=== PATIENT | female | born 1985 | race Hispanic/Latino ===

== ENCOUNTER 2018-08-31 01:20 | Observation (INO) | payer SELFPAY ==
[2018-08-31 01:42] LABS: #Basophils 0.1 thou/uL (0.0-0.2); #Eosinphils 0.2 thou/uL (0.0-0.7); #Lymphocytes 2.9 thou/uL (1.20-3.40); #Monocytes 0.4 thou/uL (0.11-0.59); #Neutrophils 3.6 thou/uL (1.40-6.50); %Basophils 0.9 % (0.0-1.0); %Eosinophils 2.9 % (0.0-10.0); %Lymphocytes 40.6 % (21.0-51.0); %Monocytes 5.3 % (0.0-10.0); %Neutrophils 50.3 % (42.0-75.0); Hemoglobin 13.4 g/dL (12.0-16.0); Mean Corpuscular HGB CONC 32.7 g/dL (32.0-36.0); Mean Corpuscular Hemoglobin 29.2 pg (27.0-31.0); Mean Corpuscular Volume 89.4 fL (78.0-98.0); Mean Platelet Volume 6.9 fL (7.4-10.4); Platelet Count 341 thou/uL (130-400); RBC Distribution Width 12.2 % (11.5-14.5); Red Blood Cell (RBC) Count 4.58 mill/uL (4.20-5.40); White Blood Cell (WBC) Count 7.2 thou/uL (4.8-10.8)
[2018-08-31 01:49] LABS: PTT 29.7 SEC (22.9-36.1); Prothrombin Time 13.1 SEC (12.0-14.7)
[2018-08-31 02:03] LABS: ALT (SGPT) 20 U/L (8-55); AST (SGOT) 20 U/L (5-34); Albumin 4.1 g/dL (3.5-5.0); Alkaline Phosphatase 106 U/L (40-150); Anion Gap 12 mmol/L (10-20); BUN (Urea Nitrogen) 17 mg/dL (7.0-18.7); Bilirubin, Total 0.2 mg/dL (0.2-1.2); CK (CPK) 154 U/L (29-168); Calc. Creatinine Clearance 0 mL/min (70-130); Calcium 9.6 mg/dL (7.8-10.44); Carbon Dioxide 26 mmol/L (22-29); Chloride 106 mmol/L (98-107); Estimated GFR-MDRD Greater than 90; Globulin 3.4 g/dL (2.4-3.5); Glucose 105 mg/dL (70-105); Potassium 3.2 mmol/L (3.5-5.1); Protein, Total 7.5 g/dL (6.0-8.3); Sodium 141 mmol/L (136-145)
[2018-08-31] MEDS ORDERED: Potassium Chloride 20 MEQ TAB ONE (02:25)
[2018-08-31] MEDS ORDERED: Aspirin Chewable 81 MG TAB ONE (02:25)
[2018-08-31] MEDS ORDERED: Ondansetron ODT 4 MG TAB PO PRN (03:25)
[2018-08-31] MEDS ORDERED: Acetaminophen 325 MG TAB PO PRN (03:25)
[2018-08-31] MEDS ORDERED: Ondansetron PF 4 MG/2 ML Vial IVP PRN (03:25)
[2018-08-31 05:16] LABS: #Basophils 0.1 thou/uL (0.0-0.2); #Eosinphils 0.2 thou/uL (0.0-0.7); #Lymphocytes 2.5 thou/uL (1.20-3.40); #Monocytes 0.4 thou/uL (0.11-0.59); #Neutrophils 5.3 thou/uL (1.40-6.50); %Basophils 0.8 % (0.0-1.0); %Eosinophils 2.1 % (0.0-10.0); %Lymphocytes 29.6 % (21.0-51.0); %Monocytes 5.2 % (0.0-10.0); %Neutrophils 62.3 % (42.0-75.0); Hemoglobin 13.2 g/dL (12.0-16.0); Mean Corpuscular HGB CONC 33.3 g/dL (32.0-36.0); Mean Corpuscular Volume 90.3 fL (78.0-98.0); Mean Platelet Volume 7.2 fL (7.4-10.4); Platelet Count 320 thou/uL (130-400); RBC Distribution Width 12.2 % (11.5-14.5); Red Blood Cell (RBC) Count 4.39 mill/uL (4.20-5.40); White Blood Cell (WBC) Count 8.5 thou/uL (4.8-10.8)
[2018-08-31 05:30] LABS: Anion Gap 11 mmol/L (10-20); BUN (Urea Nitrogen) 15 mg/dL (7.0-18.7); Calc. Creatinine Clearance 0 mL/min (70-130); Carbon Dioxide 24 mmol/L (22-29); Cardiac Risk 4.3 (Less than 4.5); Chloride 108 mmol/L (98-107); Cholesterol 178 mg/dl (< 200 Desired); Estimated GFR-MDRD Greater than 90; Glucose 103 mg/dL (70-105); HDL Cholesterol 41 mg/dL (>60 Neg Risk); LDL Cholesterol, Calculated 120 mg/dL; Potassium 4.2 mmol/L (3.5-5.1); Sodium 139 mmol/L (136-145); Triglycerides 84 mg/dL (Less than 150)
--- NOTE | 2018-08-31 07:09 | HP ---
PRIMARY CARE DOCTOR: The patient has no PCP. TIME OF EVALUATION: 3:00 a.m. CODE STATUS: Full code. CHIEF COMPLAINT: Left-sided weakness. HISTORY OF PRESENT ILLNESS: This is a 32-year-old female patient with past medical history of no significant medical problems, came to the hospital after having left-sided numbness, with facial droop, change in speech, the patient reported that she had some argument when she was at work, and after that she started having the above symptoms, symptoms started to improve by itself. Symptoms started suddenly. REVIEW OF SYSTEMS: CONSTITUTIONAL: No fever, chills or generalized weakness. RESPIRATORY: No cough, sputum production, or shortness of breath. CARDIOVASCULAR: No chest pain, or palpitation. GASTROINTESTINAL: No nausea, vomiting, diarrhea or abdominal pain. MICROSTRATEGY ARCHITECT: No dizziness, headache, or feeling lightheaded. The patient reported left-sided weakness, numbness, slurred speech. GENITOURINARY: No burning on urination. EXTREMITIES: No leg swelling. All other systems were reviewed and negative except for the findings mentioned above. PAST MEDICAL HISTORY: The patient has no significant medical history. PAST SURGICAL HISTORY: Positive for . PSYCHIATRIC HISTORY: No previous psych history. SOCIAL HISTORY: No drugs. No alcohol. No smoking history. FAMILY HISTORY: The patient has a mother with hypertension. Father with diabetes and acute [place]. KNOWN ALLERGIES: No known drug allergies. REPORTED MEDICATIONS: None. PHYSICAL EXAMINATION: VITAL SIGNS: On presentation, blood pressure 116/60 with heart rate 101, respiratory rate was 17, oxygen saturation was 100 on room air. GENERAL APPEARANCE: The patient is alert, oriented, not in acute distress. HEENT: Eyes, normal conjunctivae. Moist oral mucosa. Anicteric. No JVD. RESPIRATORY: Bilateral air entry. No rales. No wheezing. Symmetric expansion. CARDIOVASCULAR: Normal rate. Regular rhythm. No murmurs. No gallop. No edema. ABDOMEN: Soft, normal bowel sounds. MUSCULOSKELETAL: Baseline range of motion and strength. No tenderness. SKIN: Warm, intact. No pallor. No rash. No redness. Peripheral pulses are present. Capillary refill seems to be intact. NEURO: The patient has left-sided facial droop with slurred speech, strength has returned to normal. PSYCH: The patient is in good mood, mildly anxious. Optimal judgment. IMAGING STUDIES: EKG was reviewed. The patient has sinus rhythm with sinus arrhythmia with occasional PVCs at a ventricular rate of 61, CO 152, QRS 86 and QT corrected 440. Moderate voltage criteria for LVH, nonspecific T-wave abnormalities. Chest x-ray was reviewed. The patient has no significant abnormalities. CT was reviewed, not reported yet. The patient has no evident large stroke or hemorrhage. LABORATORY DATA: Labs were reviewed. The patient has white count 7.2, hemoglobin 13.4, MCV 89.4, platelet count 241. Coagulation was normal. Chemistries, sodium 141, potassium 3.2, chloride 106, anion gap 12, BUN 17, creatinine 0.6, GFR greater than 90, LFTs were normal. Troponin was negative x2. Lipid panel was normal. ASSESSMENT AND PLAN: The patient will be placed in the hospital with following medical problems: 1. Possible transient ischemic attack. The patient has new onset neurological symptoms. We will do workup for a stroke, to rule out any organic damage even though most likely the patient had somatization stress disorder, we will monitor. We will treat accordingly. 2. Deep venous thrombosis prophylaxis. 3. Risk assessment, high risk due to new onset neurological symptoms. 4. Acute hypokalemia, potassium 3.2. Job ID: [id number]
--- NOTE | 2018-08-31 07:56 | CT ---
CT OF HEAD NONCONTRAST: INDICATION: History of new-onset right-side facial droop and left-side extremity weakness. FINDINGS: There is no intracranial hemorrhage, mass effect, midline shift, or ventriculomegaly. Partially imag ed opacification is seen at the paranasal sinuses. IMPRESSION: No acute intracranial hemorrhage or mass effect. Notification of findings placed to ER physician at 0129 hours 08/31/2018. CODE CR POS: [id number]
--- NOTE | 2018-08-31 08:14 | CT ---
CTA HEAD WITH CONTRAST AND 3D VOLUME RENDERING CTA NECK WITH CONTRAST AND 3D VOLUME RENDERING: INDICATION: New-onset right-side facial droop and left-side extremity weakness. COMPARISON: No prior imaging comparison. FINDINGS: Imaged aortic arch is patent. The great vessel origins that emanate from the aortic arch are also pa tent. The visualized bilateral subclavian arteries reveal no significant stenosis or occlusion. Not e is made that the left subclavian artery is markedly limited in visualization due to adjacent venous contrast which obscures it visualization. Each vertebral artery arises from its respectively subcla vian artery and the vertebral arteries are patent with slight dominance of the left vertebral artery. Basilar artery is patent. Bilateral common carotid arteries are parent. Bilateral cervical internet salesperson al carotid arteries reveal no evidence of significant stenosis or occlusion. Intracranial aspect of each terminal ICA is patent. There is no significant stenosis or occlusion of the CHARLES, MCA, or MARKETING ADMIN b ilaterally. IMPRESSION: No significant vascular pathology of the head and neck is demonstrated. Notification of results placed to ED physician at 0149 hours, 08/31/2018. CODE CR POS: [facility]
--- NOTE | 2018-08-31 08:39 | RAD ---
CHEST 1 VIEW: INDICATION: Level I stroke alert. COMPARISON: None. FINDINGS: Lungs are clear. Heart size is normal. No acute osseous abnormality is noted. IMPRESSION: No acute cardiopulmonary abnormality. POS: [facility]
[2018-08-31] MEDS ORDERED: Enoxaparin Sodium 40 MG/0.4 ML SYRINGE SC SCH (09:00)
[2018-08-31] MEDS ORDERED: Aspirin 325 mg Enteric Coated Tablet PO SCH (09:00)
--- NOTE | 2018-08-31 13:09 | MRI ---
MRI BRAIN WITHOUT CONTRAST: HISTORY: Left-sided weakness and facial numbness. TIA. FINDINGS: Correlation is made with the CT and CTA of brain from previous day. No restricted diffusion is seen. No evidence of infarct, hemorrhage, midline shift, or abnormal extr aaxial fluid collections are seen. The ventricular size is normal and the basilar cisterns are paten t. No signal abnormalities are seen on the highly sensitive FLAIR images. No blood products are not ed on the gradient echo sequences. The flow voids are maintained. There is mucosal disease in the p aranasal sinuses. No tonsillar herniation is seen. IMPRESSION: No evidence of acute intracranial process. POS: [facility]
[2018-08-31] MEDS ORDERED: Enoxaparin Sodium 40 MG/0.4 ML SYRINGE ONE (13:50)
[2018-08-31] MEDS ORDERED: ISOVUE-370 76%-LOCM 1 ML ONE (13:50)
--- NOTE | 2018-08-31 19:17 | DIS ---
DATE OF ADMISSION: 08/31/2018 DATE OF DISCHARGE: 08/31/2018 ALLERGIES: NO KNOWN DRUG ALLERGIES. CHIEF COMPLAINT: Left-sided weakness. FINAL DIAGNOSIS: Questionable transient ischemic attack, all presenting symptoms resolved, MRI, CTA of the neck, CT of the [place], brain CT, all negative. LABORATORY RESULTS: White blood cell count 8.5, hemoglobin 13.2, hematocrit 39.6, MCV 90.3, PT 13.1, INR 1.0, APTT 29.7. Sodium 139, potassium 4.2, chloride 108, creatinine 0.59, glucose 103. Troponin negative x2. Triglycerides 84, cholesterol 178, LDL 120, HDL 41. IMAGING RESULTS: 1. Brain CT, no acute intracranial hemorrhage or mass effect. 2. CTA of the head and neck with contrast showed no significant vascular pathology. 3. CTA of [place] showed no significant vascular pathology. 4. Brain MRI, no evidence of any acute intracranial process. CONSULTATIONS: None. PHYSICAL EXAMINATION: VITAL SIGNS: Blood pressure 108/60, pulse is 67. The patient afebrile, O2 saturation 97% on room air. HOSPITAL COURSE: The patient is a 32-year-old Ukrainian-speaking only female with no significant past medical history, who presented to the hospital after experiencing left-sided numbness with facial droop, the change in speech, which occurred while the patient was at work. She reported some stress and an argument, which precipitated the event. Her symptoms did start suddenly, but then immediately began to improve. Workup included the above imaging, which was all negative. Her symptoms have completely resolved at this time. She has had no further speech issues or numbness. In addition to the above negative imaging, she also had an echocardiogram, which showed normal left ventricular systolic function and was otherwise unremarkable. PHYSICAL EXAMINATION: GENERAL: The patient is awake, alert, and oriented x3, resting comfortably, no acute distress. HEENT: Atraumatic and normocephalic. Eye movement intact. NECK: Supple. No lymphadenopathy. No carotid bruits. Trachea is midline. RESPIRATORY: Regular respiratory rate and pattern, clear to auscultation bilaterally. CV: S1 and S2. Regular rate and rhythm. No appreciable murmurs, rubs or gallops. GI: Soft and nontender. Mildly obese. Positive bowel sounds. PERIPHERAL VASCULAR: No lower extremity pitting edema bilaterally. +2 DP pulses bilaterally. MUSCULOSKELETAL: No joint effusion or swelling. NEUROLOGIC: The patient is awake and alert. Cranial nerves 2 through 12 grossly intact. No focal deficit noted on my exam. SKIN: Normal and dry. No rashes. No discoloration. CONDITION AT DISCHARGE: Stable. DISCHARGE MEDICATIONS: Aspirin 325 mg daily DISCHARGE DISPOSITION: Home. PLAN: The patient will follow up with [facility] in the future for her medical needs. At this time, her symptoms have completely resolved as mentioned above. Care was discussed with Dr. Fierro prior to discharge, who does agree with the above assessment and plan for discharge. Job ID: [id number]
== END 2018-08-31 17:15 | disposition home or self-care (01) ==
LOC: ERS 01:20 → ERHOLD 02:44
PROVIDERS: ADMIT Hospitalist; ATTEND Hospitalist
DX: R53.1 Weakness (principal); R29.810 Facial weakness; R47.9 Unspecified speech disturbances; E87.6 Hypokalemia
CPT/HCPCS: 36415; 70450; 70496; 70498; 70551; 71045; 80053; 80061; 82550; 84484; 85025; 85610; 85730; 86850; 86900; 86901; 93005; 93306; G0378; J1650; J2997; Q9966